=== PATIENT | male | born 1985 | race African-American/Black ===

== ENCOUNTER 2023-11-20 06:37 | Emergency (ER) | payer OTHER, SELFPAY ==
--- OUTSIDE RECORDS SUMMARY | 2023-11-20 06:41 | XMS REPORT | Continuity of Care Document ---
Author Name Unknown Address [address] [place] [address] thconnect Address [address] [place] [address] 1 495 [place] [address] Care Team Providers Care Direct Selling Counselor Name Role Phone Unavailable Unavailable Unavailable Encounters Start Date/Time End Date/Time Encounter Type Admission Type Attending Clinicians Care Facility Care Department Encounter ID Source 2021-07-04 00:00:00 2021-07-04 00:00:00 Outpatient [id number]
[2023-11-20] MEDS ORDERED: KETOROLAC 30 MG/ML INJ ONE (06:49)
[2023-11-20] MEDS ORDERED: HALOPERIDOL LACT 5 MG/ML INJ ONE (06:49)
[2023-11-20] MEDS ORDERED: FAMOTIDINE 20 MG/2 ML VIAL IV ONE (06:50)
[2023-11-20] MEDS ORDERED: NA CHLORIDE 0.9% 1,000 ML ONE (06:50)
[2023-11-20 06:58] LABS: Absolute Eosinophils 0.1 K/uL (0-0.5); Absolute Monocytes 0.5 K/uL (0.1-1.3); Absolute Neutrophil 1.5 K/uL (1.8-8.0); Basophils % 0.4 % (0-1.3); Eosinophils % 1.4 % (0-4.4); Hematocrit 40.9 % (39.6-49.0); Hemoglobin 13.8 g/dL (13.6-17.9); Lymphocytes % 57.5 % (15.3-44.8); MCHC 33.8 g/dL (32.0-36.0); MCV 94.8 fL (80-100); MPV 8.1 fL (7.6-11.3); Monocytes % 10.6 % (3.3-12.3); Neutrophils % 30.1 % (41.7-73.7); Nucleated Red Blood Cells % 0.1 % (0-0); Platelets 332 thou/uL (152-406); RBC Red Blood Cell Count 4.32 M/uL (4.33-5.43); Red Cell Distribution Width 12.4 % (12.1-15.2)
[2023-11-20 07:34] LABS: ALT/SGPT 20 U/L (16-61); Albumin 4.5 g/dL (3.4-5.0); Albumin/Globulin Ratio 1.3 (1.1-1.8); Alkaline Phosphatase 73 U/L (45-117); Anion Gap 8.6 mEq/L (5.0-15.0); BUN Blood Urea Nitrogen 13 mg/dL (7-18); Bicarbonate 25 mEq/L (21-32); Bilirubin Total 0.5 mg/dL (0.2-1.0); Globulin 3.4 g/dL (2.3-3.5); Glomerular Filtration Rate 71 ml/min (=/>90); Glucose Level 131 mg/dL (74-106); Lipase 46 U/L (13-75); Potassium 3.6 mEq/L (3.5-5.1); Protein, Total 7.9 g/dL (6.4-8.2); Sodium Level 139 mEq/L (136-145)
[2023-11-20 07:35] LABS: AST/SGOT < 10 U/L (15-37)
--- NOTE | 2023-11-20 08:01 | RAD REPORT ---
EXAM DESCRIPTION: CTAbdomen Pelvis W Contrast - 11/20/2023 7:51 am CLINICAL HISTORY: Abdominal pain. ABD PAIN COMPARISON: No comparisons TECHNIQUE: Biphasic CT imaging of the abdomen and pelvis was performed with 100 ml non-ionic IV cont rast. All CT scans are performed using dose optimization technique as appropriate and may include automated exposure control or mA/KV adjustment according to patient size. FINDINGS: The lung bases are clear. The liver, spleen, pancreas, adrenal glands and kidneys are within normal limits. No bowel obstruction, free air, free fluid or abscess. Normal appendix seen There is significant sto ol retention throughout the colon with fecalization noted of the distal small bowel loops. No evidenc e of significant lymphadenopathy. No suspicious bony findings. IMPRESSION: Significant stool retention in the colon with fecalization of the distal small bowel loo ps. Elsewhere, no acute finding is seen.
--- NOTE | 2023-11-20 09:41 | ER ---
Nurse's Notes [facility] Name: Ever Flynn Jr Age: 38 yrs Sex: Male : 1985 Arrival Date: 11/20/2023 Time: 06:37 Bed 5 Private MD: Diagnosis: Constipation, unspecified Presentation: 11/19 06:49 Chief complaint: Patient states: severe abdominal pain. Coronavirus screen: Client vc1 denies travel out of the [place] in the last 14 days. At this time, the client does not indicate any symptoms associated with coronavirus-19. Ebola Screen: Patient negative for fever greater than or equal to 101.5 degrees Fahrenheit, and additional compatible Ebola Virus Disease symptoms Patient denies exposure to infectious person. Patient denies travel to an Ebola-affected area in the 21 days before illness onset. No symptoms or risks identified at this time. Initial Sepsis Screen: Does the patient meet any 2 criteria? No. Patient's initial sepsis screen is negative. Does the patient have a suspected source of infection? No. Patient's initial sepsis screen is negative. Risk Assessment: Do you want to hurt yourself or someone else? Patient reports no desire to harm self or others. Note Pt found in lobby on the floor in position, patient was crying and diaphoretic. Onset of symptoms was November 20, 2023 at 05:00. Care prior to arrival: None. Activity prior to arrival: None. Mechanism of Injury: No Mechanism of Injury. Transition of care: patient was not received from another setting of care. 06:49 Method Of Arrival: Ambulatory vc1 06:49 Acuity: KOSTAS 3 vc1 Triage Assessment: 06:53 General: Appears distressed, uncomfortable, slender, well groomed, Behavior is crying, vc1 restless, thrashing around in bed. Pain: Complains of pain in right lower quadrant Pain does not radiate. Pain currently is 10 out of 10 on a pain scale. Quality of pain is described as sharp, stabbing, Pain began suddenly, 2 hours ago. Is continuous, Aggravated by increased activity, repositioning, weight bearing, Noted to be crying, moaning, restless, Also complains of vomiting. EENT: No deficits noted. No signs and/or symptoms were reported regarding the EENT system. Neuro: Rodriguez Agitation-Sedation Scale (RASS): +1 Restless Level of Consciousness is awake, alert, obeys commands, Oriented to person, place, time, situation, Appropriate for age. Cardiovascular:. Respiratory: Airway is patent Respiratory effort is even, unlabored, Respiratory pattern is symmetrical, tachypnea. GI: Abdomen is flat, non-distended, Pt is actively vomiting Abd is soft Abdomen is tender to palpation in right lower quadrant Guarding noted in right lower quadrant Reports lower abdominal pain, vomiting. : No deficits noted. No signs and/or symptoms were reported regarding the genitourinary system. Derm: Skin is intact, Skin is diaphoretic, Skin is normal, Skin temperature is cool. Musculoskeletal: No deficits noted. No signs and/or symptoms reported regarding the musculoskeletal system. Circulation, motion, and sensation intact. Range of motion: intact in all extremities. Historical: - Allergies: 06:51 No Known Allergies; vc1 - Home Meds: 06:51 None [Active]; vc1 - PMHx: 06:51 None; vc1 - PSHx: 06:51 None; vc1 - Immunization history:: Client reports having NOT received the Covid vaccine. Flu vaccine is not up to date. - Infectious Disease History:: Denies. - Family history:: not pertinent. - Social history:: Smoking status: Patient reports the use of cigarette tobacco products, 3-4 cigs/day, Patient uses street drugs, marijuana. Screenin:52 [facility] ED Fall Risk Assessment (Adult) History of falling in the last 3 months, vc1 including since admission No falls in past 3 months (0 pts) Confusion or Disorientation No (0 pts) Intoxicated or Sedated No (0 pts) Impaired Gait Yes (1 pt) Mobility Assist Device Used No (0 pt) Altered Elimination No (0 pt) Score/Fall Risk Level 0 - 2 = Low Risk Oriented to surroundings, Maintained a safe environment, Educated pt \T\ family on fall prevention, incl call for assistance when getting out of bed. Abuse screen: Denies threats or abuse. Nutritional screening: No deficits noted. Tuberculosis screening: No symptoms or risk factors identified. Assessment: 07:15 General: Appears uncomfortable, Behavior is cooperative, appropriate for age. Pain: ko1 Complains of pain in abdomen and right lower quadrant. Neuro: No deficits noted. Cardiovascular: No deficits noted. Respiratory: No deficits noted. GI: No deficits noted. : No deficits noted. EENT: No deficits noted. Derm: No deficits noted. Musculoskeletal: No deficits noted. Vital Signs: 06:49 BP 138 / 83; Pulse 73; Resp 22; Temp 96.9; Pulse Ox 96% ; Weight 83.91 kg; Height 6 ft. vc1 8 in. ; Pain 10/10; 07:15 BP 120 / 66; Pulse 74; Resp 16; Pulse Ox 99% ; ko1 09:29 BP 118 / 65; Pulse 70; Resp 14; Pulse Ox 99% ; ko1 06:49 Body Mass Index 20.32 (83.91 kg, 203.2 cm) vc1 06:49 Pain Scale: Adult vc1 Kavon Coma Score: 06:44 Eye Response: spontaneous(4). Motor Response: obeys commands(6). Verbal Response: sp4 oriented(5). Total: 15. ED Course: 06:40 Patient arrived in ED. vk 06:40 Initial lab(s) drawn, by me, sent to lab. Inserted saline lock: 20 gauge in right jw7 forearm, using aseptic technique. Blood collected. 06:41 Garland Alejandro MD is Attending Physician. sp4 06:51 Triage completed. vc1 06:53 Arm band placed on left wrist. vc1 06:53 Patient has correct armband on for positive identification. Bed in low position. Call vc1 light in reach. Side rails up X2. Pulse ox on. NIBP on. 06:56 Provided Education on: fall safety, CT, pain medication. vc1 07:01 Attending Physician role handed off by Garland Alejandro MD rn 07:01 Librado Flannery MD is Attending Physician. rn 07:07 Chiquita Borden, TOÑO is Primary Nurse. ko1 07:53 CT Abd/Pelvis - IV Contrast Only In Process Unspecified. EDMS 09:29 No provider procedures requiring assistance completed. ko1 09:29 Door closed. Noise minimized. Lights dimmed. Warm blanket given. Pillow given. ko1 09:49 IV discontinued, intact, bleeding controlled, No redness/swelling at site. Pressure ko1 dressing applied. Administered Medications: 06:47 Drug: morphine IVP or IV 8 mg IVP once over 4 mins Route: IVP; Infused Over: 4 mins; jw7 Site: right forearm; 07:12 Follow up: Response: No adverse reaction ko1 06:47 Drug: Ondansetron IVP 8 mg IVP once; over 2 minutes Route: IVP; Site: right forearm; jw7 07:12 Follow up: Response: No adverse reaction ko1 07:00 Drug: Haloperidol IVP 2.5 mg/50 mL 2.5 mg IVP once; Place patient on a head waiter/waitress jw7 Route: IVP; Site: right forearm; 07:15 Follow up: Response: No adverse reaction ko1 07:00 Drug: NS 0.9% IV 1000 ml IV at 1 bolus Per protocol; 1000 mL bolus Route: IV; Rate: 1 jw7 bolus; Site: right forearm; 08:16 Follow up: Response: No adverse reaction; IV Status: Completed infusion; IV Intake: ko1 1000ml 07:00 Drug: Famotidine IVP 20 mg IVP once; dilute with 10 mL 0.9% NaCl; give over 2 minutes jw7 Route: IVP; Site: right forearm; 07:15 Follow up: Response: No adverse reaction ko1 07:00 Drug: TORadol - Ketorolac IVP 15 mg IVP once Route: IVP; Site: right forearm; jw7 07:15 Follow up: Response: No adverse reaction ko1 Medication: 06:53 VIS not applicable for this client. vc1 Intake: 08:16 IV: 1000ml; Total: 1000ml. ko1 Outcome: 09:40 Discharge ordered by . toño 09:49 Discharged to home ambulatory, ko1 09:49 Condition: stable 09:49 Discharge instructions given to patient, Instructed on discharge instructions, follow up and referral plans. medication usage, Demonstrated understanding of instructions, follow-up care, medications, 09:49 Patient left the ED. ko1 Signatures: Dispatcher [employer] EDMS Librado Flannery MD MD rn Calcote, Vanessa RN RN 1 Destini Palomino RN RN jw7 Chiquita Borden RN RN ko1 Garland Alejandro MD MD sp4 Jayde Neville
--- NOTE | 2023-11-20 09:41 | EDPHYS ---
Physician Documentation [facility] Name: Ever Flynn Jr Age: 38 yrs Sex: Male : 1985 Arrival Date: 11/20/2023 Time: 06:37 Bed 5 Private MD: ED Physician Librado Flannery HPI: 11/19 06:44 This 38 yrs old Black Male presents to ER via Unassigned with complaints of RLQ sp4 abdominal pain . 06:44 38-year-old black male presents with acute onset right lower abdominal pain starting at sp4 5 AM this morning on awakening. Patient acutely distressed on arrival. . Patient denies any medical history in the past also denied any prior surgery.. . Historical: - Allergies: 06:51 No Known Allergies; vc1 - Home Meds: 06:51 None [Active]; vc1 - PMHx: 06:51 None; vc1 - PSHx: 06:51 None; vc1 - Immunization history:: Client reports having NOT received the Covid vaccine. Flu vaccine is not up to date. - Infectious Disease History:: Denies. - Family history:: not pertinent. - Social history:: Smoking status: Patient reports the use of cigarette tobacco products, 3-4 cigs/day, Patient uses street drugs, marijuana. ROS: 06:44 Constitutional: Negative for fever, chills, and weight loss, positive acute right lower sp4 quadrant abdominal pain positive nausea vomiting. 06:44 All other systems are negative, Exam: 06:44 Constitutional: This is a well developed, well nourished patient who is awake, alert, sp4 positive for acute distress secondary to pain , positive active vomiting on arrival Head/Face: Normocephalic, atraumatic. Eyes: Pupils equal round and reactive to light, extra-ocular motions intact. Lids and lashes normal. Conjunctiva and sclera are not injected. Cornea within normal limits. Periorbital areas with no swelling, redness, or edema. ENT: Nares patent. No nasal discharge, no septal abnormalities noted. Tympanic membranes are normal and external auditory canals are clear. Oropharynx with no redness, swelling, or masses, exudates, or evidence of obstruction, uvula midline. Mucous membranes moist. Neck: Trachea midline, no thyromegaly or masses palpated, and no cervical lymphadenopathy. Supple, full range of motion without nuchal rigidity, or vertebral point tenderness. Chest/axilla: Normal chest wall appearance and motion. Nontender with no deformity. No lesions are appreciated. Cardiovascular: Regular rate and rhythm with a normal S1 and S2. No gallops, murmurs, or rubs. Normal PMI, no JVD. No pulse deficits. Respiratory: Lungs have equal breath sounds bilaterally, clear to auscultation and percussion. No rales, rhonchi or wheezes noted. No increased work of breathing, no retractions or nasal flaring. Abdomen/GI: Soft, with normal bowel sounds. No distension or tympany. Positive right lower quadrant tenderness with significant guarding. Not able to test for rebound at this time. Back: No spinal tenderness. No costovertebral tenderness. Male : Normal genitalia with no discharge or lesions. No sign of lymphadenopathy, no sign of inguinal hernia, no sign of testicular torsion, normal exam of scrotum and testicles. No mass no lesions , no rash no lymphadenopathy. Skin: Warm, dry with normal turgor. Normal color with no rashes, no lesions, and no evidence of cellulitis. MS/ Extremity: Pulses equal, no cyanosis. Neurovascular intact. Full, normal range of motion. Neuro: Awake and alert, GCS 15, oriented to person, place, time, and situation. Cranial nerves II-XII grossly intact. Motor strength 5/5 in all extremities. Sensory grossly intact. Psych: Awake, alert, with orientation to person, place and time. Behavior, mood, and affect are within normal limits Vital Signs: 06:49 BP 138 / 83; Pulse 73; Resp 22; Temp 96.9; Pulse Ox 96% ; Weight 83.91 kg; Height 6 ft. vc1 8 in. ; Pain 10/10; 07:15 BP 120 / 66; Pulse 74; Resp 16; Pulse Ox 99% ; ko1 09:29 BP 118 / 65; Pulse 70; Resp 14; Pulse Ox 99% ; ko1 06:49 Body Mass Index 20.32 (83.91 kg, 203.2 cm) vc1 06:49 Pain Scale: Adult vc1 Kavon Coma Score: 06:44 Eye Response: spontaneous(4). Motor Response: obeys commands(6). Verbal Response: sp4 oriented(5). Total: 15. MDM: 06:44 Differential Diagnosis altered mental status, sepsis, flu, Appendicitis . Data sp4 reviewed: vital signs, nurses notes, lab test result(s), radiologic studies, CT scan. Transition of care: After a detail discussion of the patient's case, care is transferred to Librado Flannery MD. 07:00 Patient medically screened. rn 09:39 Counseling: I had a detailed discussion with the patient and/or guardian regarding the rn historical points, exam findings, and any diagnostic results supporting the discharge/admit diagnosis, lab results, radiology results, the need for outpatient follow up, to return to the emergency department if symptoms worsen or persist or if there are any questions or concerns that arise at home. Response to treatment: the patient's symptoms have markedly improved after treatment, and as a result, I will discharge patient. Special discussion: Based on the patient's Hx, exam, and Dx evaluation, there is no indication for emergent surgery or inpatient Tx. It is understood by the patient/guardian that if the Sx's persist or worsen they need to return immediately for re-evaluation. I discussed with the patient/guardian in detail that at this point there is no indication for admission to the hospital. It is understood, however, that if the symptoms persist or worsen the patient needs to return immediately for re-evaluation. ED course: No acute surgical findings on CT imaging. CT shows constipation with fecalization, offered laxative here, patient states rather take it at home. Feels better. Given multiple medications by previous shift , Will observed here for a few hours for medication to wear off and has a ride home. I have personally reviewed all of the results, including but not limited to blood tests and imaging deemed necessary to safely discharge this patient at this time. All results given to and printed out for patient. I personally went over all the results with the patient and answered all questions. Patient will follow-up with PCP and or specialist as discussed. Return precautions given and understood.. 11/19 06:42 Order name: CBC with Diff; Complete Time: 07:30 sp4 11/19 06:42 Order name: CMP; Complete Time: 08:11 sp4 11/19 06:42 Order name: Lipase; Complete Time: 08:11 sp4 11/19 06:42 Order name: CT Abd/Pelvis - IV Contrast Only; Complete Time: 08:11 sp4 11/19 06:42 Order name: IV Saline Lock; Complete Time: 06:44 sp4 11/19 06:42 Order name: Labs collected and sent; Complete Time: :44 sp4 Administered Medications: 06:47 Drug: morphine IVP or IV 8 mg IVP once over 4 mins Route: IVP; Infused Over: 4 mins; jw7 Site: right forearm; 07:12 Follow up: Response: No adverse reaction ko1 06:47 Drug: Ondansetron IVP 8 mg IVP once; over 2 minutes Route: IVP; Site: right forearm; jw7 07:12 Follow up: Response: No adverse reaction ko1 07:00 Drug: Haloperidol IVP 2.5 mg/50 mL 2.5 mg IVP once; Place patient on a laboratory monitor jw7 Route: IVP; Site: right forearm; 07:15 Follow up: Response: No adverse reaction ko1 07:00 Drug: NS 0.9% IV 1000 ml IV at 1 bolus Per protocol; 1000 mL bolus Route: IV; Rate: 1 jw7 bolus; Site: right forearm; 08:16 Follow up: Response: No adverse reaction; IV Status: Completed infusion; IV Intake: ko1 1000ml 07:00 Drug: Famotidine IVP 20 mg IVP once; dilute with 10 mL 0.9% NaCl; give over 2 minutes jw7 Route: IVP; Site: right forearm; 07:15 Follow up: Response: No adverse reaction ko1 07:00 Drug: TORadol - Ketorolac IVP 15 mg IVP once Route: IVP; Site: right forearm; jw7 07:15 Follow up: Response: No adverse reaction ko1 Disposition Summary: 11/20/23 09:40 Discharge Ordered Notes: Location: Home rn Problem: new rn Symptoms: have improved rn Condition: Stable rn Diagnosis - Constipation, unspecified rn Followup: rn - With: Private Physician - When: As needed - Reason: Recheck today's complaints, Re-evaluation by your physician Discharge Instructions: - Discharge Summary Sheet rn - Constipation, Adult rn Forms: - Medication Reconciliation Form rn - Antibiotic health care attorney - Prescription Opioid Use rn - Patient Portal Instructions rn - Leadership Thank You Letter rn Signatures: Dispatcher [facility] Librado Vernon MD MD rn Calcote, Vanessa, RN RN Destini Menchaca, RN RN jw7 Garland Alejandro MD MD sp4 Chiquita Borden RN ko1 Corrections: (The following items were deleted from the chart) 06:42 06:42 CBC+H.LAB.BRZ ordered. EDMS EDMS 06:42 06:42 COMPREHENSIVE METABOLIC PANEL+C.LAB.BRZ ordered. EDMS EDMS 06:42 06:42 LIPASE+C.LAB.BRZ ordered. EDMS EDMS 06: 06:42 Urinalysis+U.LAB.BRZ ordered. EDMS EDMS 06:42 06:42 Abdomen Pelvis W Con+CT.RAD.BRZ ordered. EDMS EDMS
[2023-11-20 10:07] VITALS: BP 118/65; TEMP 96.9; O2SAT 99
== END 2023-11-20 09:49 | disposition home or self-care (01) ==
LOC: ER 06:37
DX: K59.00 Constipation, unspecified (principal)
CPT/HCPCS: 85025; 36415; 83690; 80053; 74177; Q9967; J1630; J7030